=== PATIENT | female | born 1940 | race Caucasian/White ===

== ENCOUNTER 2017-03-21 06:55 | Day surgery (SDC) | payer MEDICARE ==
[2017-03-21] VITALS (7 sets, daily range): BP systolic 134–155; BP diastolic 45–58; PULSE 74–88; RESP 12–18; O2SAT 93–100
[~2017-03-21] VITALS: Ht 165.1 cm; Wt 79.0 kg
[~2017-03-21 06:55] MED LIST: ASPI-973 PO; Bupivacaine Liposome 1.3% 20 mL Inj INFILTRATE SCH; CALC600T12 PO; CHOL200047 PO; CeFAZolin Inj 2 GM in IV Premix 1 EACH IV SCH; LEVO100T45 PO; LOVA40TA PO; Lactated Ringer's 1,000 ML IV ONE; Lactated Ringer's 1,000 ML IV SCH; MULT-1018 PO; OMEG-38 PO; OMEP20TA86 PO; UBID1CAP59 PO; Vancomycin Inj 1,250 MG in 0.9% Sodium Chloride 250 ML IV SCH
[2017-03-21] MEDS ORDERED: Phenylephrine/NS 100 mCg/mL 10 mL Syringe IVPUSH ONE (06:56)
[2017-03-21] MEDS ORDERED: Propofol 10,000 mCg/mL 20 mL Inj ONE (06:56)
[2017-03-21] MEDS ORDERED: MetoCLOpramide 5 mg/mL 2 mL Inj ONE (06:56)
[2017-03-21] MEDS ORDERED: Ondansetron 2 mg/mL 2 mL Inj ONE (06:56)
[2017-03-21] MEDS ORDERED: fentaNYL-PF 50 mCg/mL 2 mL Inj ONE (06:56)
[2017-03-21] MEDS ORDERED: Vancomycin 1,000mg/200 mL NS IV ONE (06:57)
[2017-03-21] MEDS ORDERED: ACET325C PO (07:22)
[2017-03-21] MEDS ORDERED: IBUP400T22 PO (07:22)
[2017-03-21] MEDS ORDERED: Tranexamic Acid 100 mg/mL 10 mL Inj ONE (08:19)
[2017-03-21] MEDS ORDERED: 0.9% Sodium Chloride 100 ML ONE (08:19)
[2017-03-21] MEDS ORDERED: Lactated Ringer's 500 ML IV PRN (08:46)
[2017-03-21] MEDS ORDERED: Lactated Ringer's 1,000 ML IV SCH (08:46)
--- NOTE | 2017-03-21 08:46 | PCM.HPANE ---
Patient Data Surgeon Admitting Provider: Attending Provider:Navi Giron MD Primary Care Physician:Robby Cade MD Other Provider:[facility] Reason for Visit Right Knee Arthritis Ht/WT & BMI Height (Feet): 5 Height (Inches): 5 Weight (Kilograms): 79.56 Body Mass Index 29.00 Allergies Coded Allergies: Sulfa (Sulfonamide Antibiotics) (Verified Allergy, Unknown, 03/21/17) azithromycin (Verified Allergy, Unknown, abdominal cramps, 03/21/17) erythromycin base (Verified Allergy, Unknown, UNKNOWN, 03/21/17) Uncoded Allergies: SACCHARINE (Allergy, Unknown, 03/16/17) Past Anesthesia History Anesthesia History: Denies:: Anesthesia Reactions, Fam Anesthesia Reaction, Malignant Hyperthermia Diabetes History Hx Diabetes?: No MRSA MRSA: No Medications Blood Thinner: Aspirin Hypertension Medication: No Home Meds Incl Beta Marlene: No Reported Medications Acetaminophen 325 Mg [id number] Mg PO DAILY PRN For Pain 03/21/17 Ibuprofen 400 Mg Pqthxv478 Mg PO BID PRN For Pain Ref 0 03/21/17 Multivitamin (Multi Vitamin Daily)1 Each Tablet1 Each PO DAILY 30 Days Ref 0 03/16/17 Ubidecarenone/Vitamin E Mixed (Ukh07-Hqt E 200 mg-20 Unit Sfg)200 Mg-20 Unit Capsule1 Each PO DAILY 03/16/17 Omeprazole 20 Mg Tablet.dr20 Mg PO DAILY 03/16/17 Lovastatin 40 Mg Xbwldv59 Mg PO HS #30 TABLET Ref 0 03/16/17 Levothyroxine (Levoxyl)100 Mcg Cmfxzw559 Mcg PO DAILY Ref 0 03/16/17 [facility]-3/Dha/Epa/Fish Oil (Fish Oil 1,000 mg Softgel)1 Each Capsule1 Each PO DAILY 03/16/17 Cholecalciferol (Vitamin D3) (Vitamin D3)2,000 Unit Capsule2,000 Unit PO DAILY 03/16/17 Calcium Carbonate (Calcium)600 Mg Aqzaow681 Mg PO DAILY 03/16/17 Aspirin 81 Mg Kwdipp40 Mg PO DAILY Ref 0 03/16/17 Discontinued Reported Medications Omeprazole-Expunged Drug, Do Not Renew! 20 Mg Tablet.dr20 Mg PO DAILY 04/10/12 Atorvastatin-Expunged Drug, Do Not Renew! 20 Mg Tcuarf99 Mg PO DAILY 04/10/12 CHOLECALCIFEROL-Expunged Drug, Do Not Renew! (VITAMIN D-Expunged Drug, Do Not Renew!)400 Unit Tablet Unit PO No Strength or SIG 04/05/12 Fish Oil-Expunged Drug, Do Not Renew! Cap NO Strength or SIG/INSTRUCTED TO STOP 04/05/12 Levothyroxine-Expunged Drug, Do Not Renew! (Synthroid-Expunged Drug, Do Not Renew!)100 Mcg Tablet Po Daily No Strength or SIG 04/05/12 History History of ENT Problems?: No HEENT History: Positive for:: Sinus Problem (mild sinus problem) Denies:: Cataracts Glaucoma Hearing Problem Denture Type: None Teeth Condition: Missing Teeth Hx of Heart Problems?: Yes Cardiovascular History: Denies:: AICD Coronary Artery Disease Edema Heart Murmur Hypertension Irregular Heartbeat Pacemaker Peripheral Vascular Hx of Respiratory Problem?: No Respiratory History: Denies:: Asthma COPD Emphysema Oxygen Administration Pneumonia Tuberculosis (exposed 50 years ago, tested negative) Use of C-PAP Machine Use of Inhalers / NEBS Hx Neurologic Problems?: No Neurological History: Denies:: CVA Dementia Dizziness Headaches Multiple Sclerosis Parkinson's Disease Seizures TIA Hx of GI Problems?: Yes Hx of Problems?: No Genitourinary History: Denies:: Kidney Stones Urinary Tract Infection Female Hx: Denies:: Currently (hysterectomy) Problems with Breasts? Skin History: Denies:: History Skin Disorders? Pressure Ulcers Hx Musculoskeletal Problems?: Yes Musculoskeletal History: Positive for:: Back Injury (3 severely protruding discs ) Degenerative Joint Joint Replacement (left knee ) Musculoskeletal Trauma (right knee current admission problem) Osteoarthritis Denies:: Fibromyalgia Myasthenia Gravis Systemic Lupus Hx of Psycho/Social Problems?: No Psycho Social History: Positive for:: Hx Depression ( just 4mos ago- situational ) Denies:: Anxiety Hx Surgeries?: Yes (left knee replacement, hysterectomy) Hx Any Other Health Problems?: Yes Other History: Positive for:: Thyroid Disease Denies:: Cancer Endocrine Disease Hospitalization History Blood Transfusions: Positive for:: Accept Blood Products? Denies:: Blood Transfusions Hx Diabetes: No Hx Alcohol Use: YesAlcoholic Drinks Per Day: 1-2 glasses wine dailyHx Substance Use: Yes (marijuana inhaled weekly)Have You Smoked inLast 12 mo: No Stop/Bang S-Snoring: Do You Snore Loudly: No T-Tired: feel tired, fatigued: No O-Obsered: Observed not breath: No P-Blood Pressure: treated: No B- Body Mass Index > 35 kg/m2: No A- Age over 50: Yes N- Neck Large Circumference: No G- Gender Male: No ERNESTO Total Score: 1 Risk Assessment Category Category 1A: Patient has history of documented sleep apnea, and HAS NOT received any narcotic, sedative or anesthesia administration during this stay. Category 1B: Patient has history of documented sleep apnea, and HAS received any narcotic , sedative or anesthesia administration during this stay Category 2: Patient has SUSPECTED Obstructive Sleep Apnea, and HAS received any narcotic , sedative or anesthesia administration during this stay. Category 3: Patient has SUSPECTED Obstructive Sleep Apnea and HAS NOT received narcotic, sedative or anesthesia administration during this stay. Category 4: Outpatient in Procedural Areas with known sleep apnea or who screen positive for High Risk via the STOP/BANG questionnaire. Exam Exam General Appearance: Alert, Oriented X3, Cooperative, No Acute Distress HEENT/AIRWAY: MP 2, Neck Movement (FROM), Mouth Opening (3 FBMO) Lungs: Clear to Auscultation, Normal Air Movement Heart: Exam Unremarkable, Regular Rate/Rhythm, No Murmurs/Rubs/Gallops Plan Impression Patient chart reviewed, patient interviewed and anesthestic plan with risks, benefits, and alternatives discussed, and informed consent obtained. NPO per Anesth. Guidelines: Yes ASA Physical Status: ASA2 Mod Systemic Disease Anesthetic Plan: GA Bene/Risks/Altern/Consents: Yes HP Complete Prior to Induction: Yes Patrice Brown MD March 21, 2017 07:14
[2017-03-21] MEDS ORDERED: fentaNYL-PF 50 mCg/mL 2 mL Inj IVPUSH PRN (08:50)
[2017-03-21] MEDS ORDERED: EPHEDrine Sulfate 50 mg/mL Inj IVPUSH PRN (08:50)
[2017-03-21] MEDS ORDERED: MetoCLOpramide 5 mg/mL 2 mL Inj IVPUSH PRN (08:50)
[2017-03-21] MEDS ORDERED: HYDROmorphone 1 mg/mL Inj IVPUSH PRN (08:50)
[2017-03-21] MEDS ORDERED: Phenylephrine 10,000 mCg/mL Inj IVPUSH PRN (08:50)
[2017-03-21] MEDS ORDERED: Atropine 0.4 mg/mL Inj IVPUSH PRN (08:50)
[2017-03-21] MEDS ORDERED: Ondansetron 2 mg/mL 2 mL Inj IVPUSH PRN (08:50)
[2017-03-21] MEDS ORDERED: Labetalol 5 mg/mL 4 mL Inj IV PRN (08:50)
[2017-03-21] MEDS ORDERED: Gentamicin 40 mg/mL 2 mL Inj IRRIGATION ONE (08:59)
[2017-03-21] MEDS ORDERED: Bupivacaine-MPF 0.25%/EPI 30 mL Inj INJ ONE (08:59)
[2017-03-21] MEDS ORDERED: Bupivacaine Liposome 1.3% 20 mL Inj INFILTRATE ONE (08:59)
[2017-03-21] MEDS ORDERED: HYDROcodone-APAP 5-325 mg Tablet PO PRN (09:55)
[2017-03-21] MEDS ORDERED: Ketorolac 15 mg/mL Inj IVPUSH ONE (09:55)
--- NOTE | 2017-03-21 10:31 | DRSVH ---
PROCEDURE: X-RAY RIGHT KNEE, ONE OR TWO VIEWS ([id number]) INDICATIONS: POST UNI KNEE RIGHT TECHNIQUE: 2 view(s) of the knee acquired. COMPARISON: [facility], CR, XR KNEE ARTHRITIC SERIES RT, 09/02/2016, 13:35. FINDINGS: Bones: Expected postoperative changes of the right knee are present, related to the lateral tibiofemo ral compartment hemiarthroplasty. The metallic prosthetic components appear intact and appropriately positioned without associated periprosthetic fracture. Soft tissues: Overlying postoperative changes are noted. A drainage catheter is seen overlying the knee. No unexpected radiopaque foreign bodies are evident. IMPRESSION: Expected postoperative changes related to a lateral compartment right knee hemiarthroplas ty. Dictated by: Bassem Evans M.D. on 03/21/2017 at 9:29 Approved by: Bassem Evans M.D. on 03/21/2017 at 9:30
[2017-03-21] MEDS ORDERED: Lactated Ringer's 1,000 ML IV ONE (10:40)
[2017-03-21] MEDS: oxyCODONE-Acetamin 5-325 mg Tablet PO PRN ×2 (11:00→12:08)
[2017-03-21] MEDS ORDERED: hydrOXYzine Pamoate 25 mg Capsule ONE (11:19)
--- NOTE | 2017-03-21 11:19 | PCM.ANEP1 ---
Post Anesthesia Phase 1 PACU Phase 1 Assessment Vital Signs Vital Signs Date Time Temp Pulse Resp B/P Pulse Ox O2 Delivery O2 Flow Rate FiO2 03/21/17 10:42 84 18 155/55 95 Room Air 03/21/17 10:20 81 12 142/53 93 Nasal Cannula 03/21/17 10:00 84 14 134/53 96 Nasal Cannula 03/21/17 09:55 36.9 80 14 155/58 100 Simple Mask 10 03/21/17 07:33 36.2 74 14 136/51 98 Room Air Anesthetic Administered: GA Level of Alertness: Awake, talking WALTON's with Equal Strength: Yes Pain: No Nausea or Vomiting: No Cardiovascular Function and Hy: Yes Oxygen Delivery: Simple Mask Lungs: Clear to Auscultation, Normal Air Movement Dermatome Level: Full Sensation Complications: No Follow up Care: No Patrice Brown MD March 21, 2017 11:19
--- NOTE | 2017-03-21 19:37 | OP ---
[address] [address] OPERATIVE REPORT PATIENT: TIKA TROY : 1940 MR#: [id number] ADMIT: 03/21/2017 JOB ID: [id number] DATE OF SURGERY: 03/21/2017 PREOPERATIVE DIAGNOSIS(ES): Advanced osteoarthritis, lateral compartment, right knee. POSTOPERATIVE DIAGNOSIS(ES): Advanced osteoarthritis, lateral compartment, right knee. PROCEDURE: Lateral unicompartmental knee arthroplasty. SURGEON: Navi Giron MD. FABRIC MACHINE OPERATOR: Nicole Connelly PA-C. Mobile Phone Salesperson required due to the complexity of the operation. INDICATIONS: This woman has had progressive disability, uncontrolled by conservative treatment techniques. She elects for a partial knee replacement. She understands and accepts the limitations of potential complications which include but is not limited to infection, thromboembolic, neurovascular events, as well as potential for implant failure and progressive arthritis in unresurfaced compartments. Understanding these, she wishes to proceed. PROCEDURE IN DETAIL: The patient was prepped and draped in usual sterile fashion. An anterolateral approach was made to the knee. Frontal bossing was removed off the tibia and a patellar osteophyte was excised. The alignment apparatus was assembled using the -2 distal femoral cutting jig and a -2 distal femoral cut was made. The tibial cut was cut with the sagittal saw, completed with the oscillating saw. Bone fragment was removed. All meniscal tissue and osteophytes were carefully debrided from the knee. The femur was sized to a C chamfer cutting block, fixed in appropriate position and rotation, and drill holes and chamfer cuts were made. Tibia was sized to a #2 and was provisionally fixed. Trial reduction was performed and an 8 mm polyethylene was chosen. The wounds were irrigated with a large quantity of sterile irrigant. Pressurized lavage was followed by pressurized cementation. Excess cement was removed during the curing process. Final construct was assembled. The final poly was snapped securely into place. The deep Hemovac drain was left. Tourniquet was let down. Hemostasis was achieved. Deep fascia was closed with #2 Quill deep followed by application of Betadine to the subcutaneous tissues. A 2-0 Vicryl, 3-0, and a 4-0 anterior cuticular stitch was subsequently utilized. The patient tolerated the procedure well. There were no complications. She was taken to the recovery room in stable condition. Standard postoperative course recommended.
== END 2017-03-21 23:59 | disposition home or self-care (01) ==
LOC: SAS 06:55
PROVIDERS: ATTEND Orthopaedic Surgery
DX: M17.11 Unilateral primary osteoarthritis, right knee (principal); K21.9 Gastro-esophageal reflux disease without esophagitis; F32.9 Major depressive disorder, single episode, unspecified; E07.9 Disorder of thyroid, unspecified; F12.90 Cannabis use, unspecified, uncomplicated; Z87.891 Personal history of nicotine dependence; Z79.82 Long term (current) use of aspirin
CPT/HCPCS: 27446; 73560; C1713; C1776; J0690; J1580; J1885; J2270; J2370; J2405; J2765; J3010; J3370; J7050; J7120; Q0177